=== PATIENT | male | born 1995 | race Caucasian/White ===

== ENCOUNTER 2017-04-16 11:51 | Emergency (ER) | payer BC ==
[~2017-04-16] VITALS: Ht 188 cm; Wt 126.1 kg
--- NOTE | ~2017-04-16 | EKG ---
PATIENT: JILL MORALES UNIT #: [id number] Ventricular Rate: 53 BPM Atrial Rate: 53 BPM P-R Interval: 184 ms QRS Duration: 106 ms Q-T Interval: 390 ms QTC Calculation(Bezet): 365 ms P Cortez: 22 degrees Calculated R Cortez: 108 degrees Calculated T Cortez: 28 degrees Diagnosis Line: Sinus bradycardia Diagnosis Line: Rightward axis Diagnosis Line: Otherwise normal ECG Diagnosis Line: No previous ECGs available Diagnosis Line: Confirmed by LOURDES PERES MD ([id number]) on 04/18/2017 Diagnosis Line: 1:57:12 PM INTERPRETING MD: LARISA GILMORE
== END 2017-04-16 12:50 | disposition home or self-care (01) ==
LOC: CED 11:51
DX: J01.90 Acute sinusitis, unspecified (principal)
CPT/HCPCS: 93005; 99284